=== PATIENT | male | born 1995 | race Two or more races ===

== ENCOUNTER 2025-03-16 09:46 | Emergency (ER) | payer OTHER ==
[~2025-03-16] VITALS: Ht 180.3 cm; Wt 100.6 kg
[2025-03-16] MEDS ORDERED: CEPH500C PO (10:28)
--- NOTE | 2025-03-16 10:29 | ED.PDOC ---
History of Present Illness(SKN HPI Comments A 29 YEAR OLD MALE PRESENTS TO THE ED WITH COMPLAINT OF PUNCTURE WOUND OF LEFT FOOT. PATIENT STATES HE WAS FEEDING HIS HORSES EARLIER TODAY AND HE ACCIDENTALLY STEPPED ON A NAIL THAT WAS ON THE GROUND. PATIENT REPORTS HE SUSTAINED A SMALL PUNCTURE WOUND TO THE PLANTAR ASPECT OF HIS LEFT FOOT. NO BLEEDING NOTED AT THIS TIME. PATIENT DENIES FEVER, CHILLS, SHORTNESS OF BREATH, CHEST PAIN, ABDOMINAL PAIN, NAUSEA, VOMITING, HEADACHE, OR OTHER COMPLAINTS. NO OTHER SYMPTOMS OR MODIFYING FACTORS AT THIS TIME. PATIENT IS ALERT, ORIENTED X 4, AND HAS STEADY GAIT. Chief Complaint: Puncture Wound Time Seen by MD: 09:57 History of Present Illness: Nurses Notes, Medications, Allergies Allergies: Coded Allergies: Erythromycin (Verified Allergy, Unknown, 03/16/25) Sulfisoxazole (Verified Allergy, Unknown, 03/16/25) Home Meds Active Scripts Cephalexin Monohydrate (Cephalexin) 500 Mg Cap, 1 CAP PO QID, #28 CAP Prov:MARIZA MEDEL 03/16/25 Information Source: Patient Mode of Arrival: Ambulatory Severity: Mild Timing: Hours Duration: Since onset, Hours Prehospital treatment: None Location: Foot (LEFT FOOT) Mechanism: Preceding Wound Occurence: Outdoors Object: Nail Condition of Object: Dirty Retained Foreign Body: No Wound Type: Puncture Immunization Status of Animal: NA Tetanus: UTD History of: None Associated Signs and Symptoms: Redness, Pain Past Medical History PAST MEDICAL HISTORY: Denies Surgical History: Denies all surgeries Family History Family History: Reviewed,noncontributory to illness Social History Smoker: Non-Smoker Alcohol: Denies ETOH Use Drugs: Denies Drug Use Lives In: Home Constitutional: denies: chills, diaphoresis, fatigue, fever, malaise, sweats, weakness, others EENTM: denies: blurred vision, double vision, ear bleeding, ear discharge, ear drainage, ear pain, ear ringing, eye pain, eye redness, hearing loss, mouth pain, mouth swelling, nasal discharge, nose bleeding, nose congestion, nose pain, photophobia, tearing, throat pain, throat swelling, voice changes, others Respiratory: denies: cough, hemoptysis, orthopnea, SOB at rest, shortness of breath, SOB with excertion, stridor, wheezing, others Cardiovascular: denies: chest pain, dizzy spells, diaphoresis, Dyspnea on exe rtion, edema, irregular heart beat, left arm pain, lightheadedness, palpitations, PND, syncope, others Gastrointestinal: denies: abdomen distended, abdominal pain, blood streaked bowels, constipated, diarrhea, dysphagia, difficulty swallowing, hematemesis, melena, nausea, poor appetite, poor fluid intake, rectal bleeding, rectal pain, vomiting, others Genitourinary: denies: burning, dysuria, flank pain, frequency, hematuria, incontinence, penile discharge, penile sore, pain, testicle pain, testicle swelling, urgency, others Neurological: denies: dizziness, fainting, headache, left sided numbness, left sided weakness, numbness, paresthesia, pre-existing deficit, right sided numbness, right sided weakness, seizure, speech problems, tingling, tremors, weakness, others Musculoskeletal: denies: back pain, gout, joint pain, joint swelling, muscle pain, muscle stiffness, neck pain, others Integumetry: reports: wounds (PUNCTURE WOUND OF THE PLANTAR ASPECT OF LEFT FOOT); denies: bruises, change in color, change in hair/nails, dryness, laceration, lesions, lumps, rash, others Allergic/Immunocompromised: denies: Difficulty Healing, Frequent Infections, Hives, Itching, others Hematologic/Lymphatic: denies: anemia, blood clots, easy bleeding, easy bruising, swollen glands, others Endocrine: denies: excessive hunger, excessive sweating, excessive thirst, excessive urination, flushing, intolerance to cold, intolerance to heat, unexplained weight gain, unexplained weight loss, others Psychiatric: denies: anxiety, bipolar disorder, depression, hopeless, panic disorder, schizophrenia, sleepless, suicidal, others All Other Systems: Reviewed and Negative Physical Exam General Appearance: No Apparent Distress, Normal HEENT: Normal ENT Inspection, PERRL/EOMI, Pharynx Normal, TMs Normal Neck: Full Range of Motion, Non-Tender, Normal, Normal Inspection Respiratory: Chest Non-Tender, Lungs Clear, No Accessory Muscle Use, No Respiratory Distress, Normal Breath Sounds Cardiovascular: No Edema, No JVD, No Murmur, No Gallop, Normal Peripheral Pulses, Regular Rate/Rhythm Breast Exam: Deferred Gastrointestinal: No Organomegaly, Non Tender, No Pulsatile Mass, Normal Bowel Sounds, Soft Genitalia: Deferred Pelvic: Deferred Rectal: Deferred Extremities: No calf tenderness, Normal capillary refill, Normal inspection, Normal range of motion, Non-tender, No pedal edema Musculoskeletal : Apperance: Normal Neurologic: Alert, engineering program analyst II-XII nml as Tested, No Motor Deficits, Normal Affect, Normal Mood, No Sensory Deficits Cerebellar Function: Normal Reflexes: Normal Skin: Dry, Normal Color, Warm, Wounds (A PUNCTURE WOUND WITH MILD REDNESS AND TENDERNESS ON LEFT PLANTAR FOOT, NO BLEEDING AND FB, NORMAL GAIT. ) Peripheral Pulses: 2+ carotid (R), 2+ carotid (L), 2+ dorsalis pedis (R), 2+ dorsalis pedis (L) Lymphatic: No Adenopathy Was a procedure done? Was a procedure done?: No Differential Diagnosis (INTG) Differential Diagnosis: Abrasion, Contusion, Laceration, Puncture Wound Differential Diagnosis: N/A Differential Diagnosis: N/A Abscess: N/A Differential Diagnosis: N/A X-Ray, Labs, Meds, VS Vital Signs Date Time Temp Pulse Resp B/P (MAP) Pulse Ox O2 Delivery O2 Flow Rate FiO2 03/16/25 09:49 99.6 68 16 97 99.6 X-Ray, Labs, Meds, VS Comment EXTERNAL MEDICAL RECORDS REVIEWED: [NONE] INDEPENDENT HISTORIANS: [NONE] SOCIAL DETERMINANTS OF HEALTH: [NONE] LABS ORDERED: NONE REVIEWED AND INTERPRETED RESULTS: NONE IMAGING ORDERED: NONE TREATMENTS ORDERED: PATIENT HAS PUNCTURE WOUND OF HIS LEFT FOOT WAS CLEANED USING NORMAL SALINE AND ALCOHOL SWABS. PROCEDURES PERFORMED: NONE CRITICAL CARE TIME: NONE I HAVE DISCUSSED THE PATIENT WITH THE ATTENDING PHYSICIAN DR. RODRIGUEZ AND HE AGREES WITH THE PATIENT'S PLAN OF CARE AND DISPOSITION. BASED ON HISTORY OF PRESENT ILLNESS, AND PHYSICAL EXAM, PATIENT WILL BE DISCHARGED HOME. DISCUSSED PLAN FOR DISCHARGE HOME WITH RX [KEFLEX]. MEDICATION WARNINGS GIVEN. SHARED DECISION MAKING: DISCUSSED WITH PATIENT THAT THEIR WORKUP WAS NORMAL. PATIENT INSTRUCTED TO FOLLOW UP WITH PRIMARY CARE PROVIDER IN 1-2 DAYS FOR RE- EVALUATION OF SYMPTOMS. PATIENT VERBALIZES UNDERSTANDING TO RETURN TO ED FOR NEW OR WORSENING SYMPTOMS OR IF FOLLOW UP WITH PCP CANNOT BE OBTAINED. PATIENT FEELS COMFORTABLE GOING HOME AT THIS TIME. ALL QUESTIONS ADDRESSED AT TIME OF DISCHARGE. Time of 1ST Reevaluation: 10:42 Reevaluation 1ST: Improved Patient Education/Counseling: Diagnosis, Treatment, Need For Follow Up Family Education/Counseling: Diagnosis, Treatment, Need For Follow Up SEPSIS Sepsis Screen Date sepsis recognized/suspect: Mar 16, 2025 Time Sepsis recognized/suspect: 951 Recent Procedure: No On Antibiotic Therapy: No Respiratory Rate >20: No Heart Rate >90: No Temp<36 C (96.8 F) or >38.3 C: No SBP <90 or MAP <65 mmHG: No New Acute Mental Status Change: No Is the patient on CPAP, BIPAP,: No Vital Signs Date Time Temp Pulse Resp B/P (MAP) Pulse Ox O2 Delivery O2 Flow Rate FiO2 03/16/25 09:49 99.6 68 16 97 99.6 Departure 1 Departure Time of Disposition: 10:42 Impression: Primary Impression: Puncture wound of sole of left foot without complication Qualified Codes: S91.332A - Puncture wound without foreign body, left foot, initial encounter Disposition: HOME / SELF CARE / HOMELESS Condition: Stable Additional Instructions: FOLLOW-UP WITH PCP IN 1 TO 2 DAYS. TAKE MEDICATIONS PRESCRIBED. RETURN TO ED FOR ANY NEW OR WORSENING SYMPTOMS. e-Prescriptions Cephalexin Monohydrate (Cephalexin) 500 Mg Cap 1 CAP PO QID, #28 CAP Prov: MARIZA MEDEL 03/16/25 Discharged With: Self Critical Care Note Critical Care Time?: No Stability Stability form required: No I personally scribed for MARIZA MEDEL ([email or web address]) on 03/16/25 at 10:29. El ectronically submitted by Theron Landon ([email or web address]). MARIZA MEDEL Mar 16, 2025 10:29
[2025-03-16 10:42] VITALS: BP 128/88; PULSE 68; RESP 16; TEMP 99.6; O2SAT 97
== END 2025-03-16 10:43 | disposition home or self-care (01) ==
LOC: ER 09:46
DX: S91.332A Puncture wound without foreign body, left foot, initial encounter (principal); Z88.2 Allergy status to sulfonamides; Z88.1 Allergy status to other antibiotic agents; Z79.899 Other long term (current) drug therapy; W22.8XXA Striking against or struck by other objects, initial encounter; Y93.89 Activity, other specified; Y92.89 Other specified places as the place of occurrence of the external cause; Y99.8 Other external cause status